=== PATIENT | female | born 1995 | race Caucasian/White ===

== ENCOUNTER → 2019-09-09 | Outpatient (CLI) | payer BC | LOC: M LABSMTC 12:38 | PROVIDERS: ATTEND Family Medicine | DX: Z11.59 Encounter for screening for other viral diseases (principal); Z20.828 Contact with and (suspected) exposure to other viral communicable diseases ==

== ENCOUNTER 2020-05-15 18:31 | Emergency (ER) | payer BC ==
[~2020-05-15] VITALS: Ht 175.3 cm; Wt 80.6 kg
[2020-05-15] MEDS ORDERED: METOCLOPRAMIDE 10 MG TAB PO ONE (19:15)
[2020-05-15 19:39] LABS: BASO % 0.4 % (0.0-1.0); EOS # 0.1 10^3/uL (0.0-0.5); EOS % 1.1 % (0.0-3.0); HEMATOCRIT 43.9 % (36.0-47.0); HEMOGLOBIN 14.6 g/dl (12.0-15.5); LYMPH # 2.8 10^3/uL (1.5-5.0); LYMPH % 36.9 % (24.0-44.0); MEAN CORPUSCULAR HGB CONC 33.3 g/dl (32.0-36.5); MEAN CORPUSCULAR VOLUME 90.1 fl (80.0-96.0); MONO # 0.4 10^3/uL (0.0-0.8); MONO % 5.2 % (0.0-5.0); NEUTROPHILS # 4.2 10^3/uL (1.5-8.5); NEUTROPHILS % 56.1 % (36.0-66.0); PLATELET COUNT, AUTOMATED 260 10^3/uL (150-450); RED BLOOD COUNT 4.87 10^6/uL (4.00-5.40); WHITE BLOOD COUNT 7.5 10^3/uL (4.0-10.0)
[2020-05-15 20:19] LABS: HCG, SERUM QUALITATIVE NEGATIVE (NEGATIVE)
[2020-05-15 20:20] LABS: ACETAMINOPHEN LEVEL < 2.0 UG/ML (10.0-30.0); ALBUMIN 3.4 GM/DL (3.2-5.2); ALT/SGPT 22 U/L (12-78); BILIRUBIN,DIRECT 0.1 MG/DL (0.0-0.2); BILIRUBIN,TOTAL 0.6 MG/DL (0.2-1.0); BLOOD UREA NITROGEN 14 MG/DL (7-18); CALCIUM LEVEL 8.9 MG/DL (8.5-10.1); CARBON DIOXIDE LEVEL 25 MEQ/L (21-32); CHLORIDE LEVEL 109 MEQ/L (98-107); CREATININE FOR GFR 0.83 MG/DL (0.55-1.30); ETHYL ALCOHOL (ETHANOL) < 0.003 % (0.000-0.010); FREE THYROXINE INDEX 3.6 % (1.3-4.8); GLOMERULAR FILTRATION RATE > 60.0 (>60); GLUCOSE, FASTING 81 MG/DL (70-100); MAGNESIUM LEVEL 1.8 MG/DL (1.8-2.4); POTASSIUM SERUM 4.1 MEQ/L (3.5-5.1); SALICYLATE LEVEL 2.5 MG/DL (5.0-30.0); SODIUM LEVEL 140 MEQ/L (136-145); T UPTAKE 33 % (30-39); TOTAL PROTEIN 6.7 GM/DL (6.4-8.2)
--- NOTE | 2020-05-15 20:46 | REPVR ---
PROCEDURE INFORMATION: Exam: CT Head Without Contrast Exam date and time: 05/15/2020 8:23 PM Age: 25 years old Clinical indication: Pain; Patient HX: Headaches for past 12 months; Additional info: Altered mental status TECHNIQUE: Imaging protocol: Computed tomography of the head without contrast. Axial and coronal reformatted images were created and reviewed. Radiation optimization: All CT scans at this facility use at least one of these dose optimization techniques: automated exposure control; mA and/or kV adjustment per patient size (includes targeted exams where dose is matched to clinical indication); or iterative reconstruction. COMPARISON: No relevant prior studies available. FINDINGS: Brain: No CT evidence of acute intracranial hemorrhage or acute territorial infarction. No significant mass effect or midline shift. Basal cisterns patent. Cerebral ventricles: Normal in size and configuration. Bones/joints: No acute osseous abnormality. Paranasal sinuses: Unremarkable. No fluid levels. Mastoid air cells: Grossly unremarkable. Soft tissues: Grossly unremarkable. IMPRESSION: No CT evidence of acute intracranial pathology. Electronically signed by: Beau Harrell On 05/15/2020 20:46:04 PM
[2020-05-15 21:07] LABS: AMPHETAMINES LEVEL URINE NEGATIVE (NEGATIVE); BARBITURATES URINE NEGATIVE (NEGATIVE); BENZODIAZEPINES URINE NEGATIVE (NEGATIVE); CANNABINOIDS URINE NEGATIVE (NEGATIVE); COCAINE METABOLITE URINE NEGATIVE (NEGATIVE); METHADONE URINE NEGATIVE (NEGATIVE); OPIATES URINE NEGATIVE (NEGATIVE); PHENCYCLIDINE URINE NEGATIVE (NEGATIVE)
[2020-05-15] MEDS ORDERED: REGL10TA6 PO (21:15)
[2020-05-15 21:22] VITALS: BP 122/70
== END 2020-05-15 21:24 | disposition home or self-care (01) ==
LOC: M ED 18:31
DX: R51.9 Headache, unspecified (principal); R11.0 Nausea
CPT/HCPCS: 36415; 70450; 80048; 80076; 80307; 81001; 83735; 84436; 84443; 84479; 84703; 85025; 99283; G0480

== ENCOUNTER 2020-11-21 21:26 | Inpatient (IN) | payer BC ==
[~2020-11-21] VITALS: Ht 175.3 cm; Wt 77.3 kg
[~2020-11-21 21:26] MED LIST: REGL10TA6 PO
[2020-11-21] MEDS ORDERED: FLUO20CA20 PO (21:35)
[2020-11-21] MEDS ORDERED: L-NO1TBD6 PO (21:35)
[2020-11-21] MEDS ORDERED: FLUO40CA PO (21:35)
[2020-11-21] MEDS ORDERED: [UNRECOGNIZED DRUG - OTHER] PO (21:40)
[2020-11-21] MEDS ORDERED: AZEL0.055 NARES (21:40)
[2020-11-21] MEDS ORDERED: BRIN10TA4 PO (21:40)
[2020-11-21] MEDS ORDERED: BUSP15TA47 PO (21:40)
[2020-11-21] MEDS ORDERED: CETI10CH PO (21:40)
[2020-11-21] MEDS ORDERED: LORA-622 PO (21:40)
[2020-11-21] MEDS ORDERED: FLON1SPR NARES (21:40)
[2020-11-21 22:05] LABS: BASO % 0.4 % (0.0-1.0); EOS % 0.3 % (0.0-3.0); HEMATOCRIT 41.8 % (36.0-47.0); HEMOGLOBIN 14.5 g/dl (12.0-15.5); LYMPH # 2.8 10^3/uL (1.5-5.0); LYMPH % 29.2 % (24.0-44.0); MEAN CORPUSCULAR HGB CONC 34.7 g/dl (32.0-36.5); MEAN CORPUSCULAR VOLUME 86.5 fl (80.0-96.0); MONO # 0.5 10^3/uL (0.0-0.8); MONO % 5.2 % (2.0-8.0); NEUTROPHILS # 6.2 10^3/uL (1.5-8.5); NEUTROPHILS % 64.7 % (36.0-66.0); PLATELET COUNT, AUTOMATED 263 10^3/uL (150-450); RED BLOOD COUNT 4.83 10^6/uL (4.00-5.40); WHITE BLOOD COUNT 9.6 10^3/uL (4.0-10.0)
[2020-11-21] MEDS ORDERED: NS 1,000 ML IV ONE (22:30)
[2020-11-21 22:38] LABS: ACETAMINOPHEN LEVEL < 2.0 UG/ML (10.0-30.0); ALBUMIN 3.4 GM/DL (3.2-5.2); ALT/SGPT 21 U/L (12-78); BILIRUBIN,DIRECT 0.1 MG/DL (0.0-0.2); BILIRUBIN,TOTAL 0.5 MG/DL (0.2-1.0); BLOOD UREA NITROGEN 11 MG/DL (7-18); CALCIUM LEVEL 8.8 MG/DL (8.5-10.1); CARBON DIOXIDE LEVEL 22 MEQ/L (21-32); CHLORIDE LEVEL 108 MEQ/L (98-107); CPK CREATINE PHOSPHOKINASE 112 U/L (26-192); CREATININE FOR GFR 0.75 MG/DL (0.55-1.30); ETHYL ALCOHOL (ETHANOL) < 0.003 % (0.000-0.010); GLOMERULAR FILTRATION RATE > 60.0 (>60); GLUCOSE, FASTING 86 MG/DL (70-100); POTASSIUM SERUM 3.7 MEQ/L (3.5-5.1); SALICYLATE LEVEL 4.8 MG/DL (5.0-30.0); SODIUM LEVEL 138 MEQ/L (136-145); TOTAL PROTEIN 6.7 GM/DL (6.4-8.2)
[2020-11-21 22:48] LABS: HCG, SERUM QUALITATIVE NEGATIVE (NEGATIVE)
[2020-11-21 23:29] LABS: AMPHETAMINES LEVEL URINE NEGATIVE (NEGATIVE); BARBITURATES URINE NEGATIVE (NEGATIVE); BENZODIAZEPINES URINE NEGATIVE (NEGATIVE); CANNABINOIDS URINE NEGATIVE (NEGATIVE); COCAINE METABOLITE URINE NEGATIVE (NEGATIVE); METHADONE URINE NEGATIVE (NEGATIVE); OPIATES URINE NEGATIVE (NEGATIVE); PHENCYCLIDINE URINE NEGATIVE (NEGATIVE)
[2020-11-22] MEDS: busPIRone 5 MG TAB PO SCH ×2 (08:48→21:20)
[2020-11-22] MEDS: FLUoxetine 20 MG CAP PO SCH (08:48)
[2020-11-22] MEDS ORDERED: CETI-14 PO (12:19)
[2020-11-22] MEDS ORDERED: ZZZQ25CA PO (12:19)
[2020-11-22] MEDS ORDERED: ALPR0.25 PO (12:19)
[2020-11-22 12:43] LABS: RSV AMPLIFICATION NEGATIVE (NEGATIVE)
[2020-11-22] MEDS ORDERED: MOM 30ML SUSPENSION UDC PO PRN (14:20)
[2020-11-22] MEDS ORDERED: traZODone 50 MG TAB PO PRN (14:20)
[2020-11-22] MEDS ORDERED: MAALOX 30 ML SUSP *UDC PO PRN (14:20)
[2020-11-22] MEDS ORDERED: ALPRAZolam 0.25 MG TAB PO PRN (14:20)
--- NOTE | 2020-11-22 19:44 | ECGEPIP ---
[facility] - ED Test Date: 2020-11-21 Pat Name: GUALBERTO KNUTSON Department: Room: - Gender: Female Charge Operator: NAYANA : 1995 Requested By: ALFREDO Steiner Order Number: [id number] Reading MD: Jose M Hines Measurements Intervals [place] Rate: 72 P: 44 DE: 154 QRS: 4 QRSD: 86 T: 28 QT: 406 QTc: 444 Interpretive Statements Normal sinus rhythm POOR R WAVE PROGRESSION NONSPECIFIC T WAVE ABNORMALITY(S) NO PRIORS FOR COMPARISON Electronically Signed on 11-22-2020 19:44:27 EDT by Jose M Hines
[2020-11-22] MEDS ORDERED: FLUoxetine 20 MG CAP PO SCH ×2 (21:00)
[2020-11-22] MEDS ORDERED: TRINTELLIX 10 MG PO SCH (21:00)
[2020-11-22] MEDS ORDERED: FLUTICASONE PROP 0.05% NASAL SPRAY 16 GM (FLONASE) NARES SCH (21:00)
[2020-11-22] MEDS ORDERED: AZELASTINE 137MCG NASAL SPY 30 ML (ASTELIN) SCH (21:00)
[2020-11-22] MEDS ORDERED: CETIRIZINE (ZyrTEC) 10 MG TAB PO SCH (21:00)
[2020-11-22] MEDS ORDERED: busPIRone 10 MG TAB PO SCH (21:00)
[2020-11-22 21:18] VITALS: BP 109/62
[2020-11-23 06:37] VITALS: BP 123/77
[2020-11-23] MEDS ORDERED: INFLUENZA QUADRIVALENT PF VACCINE 0.5ML SYRINGE IM ONE (09:00)
[2020-11-23] MEDS ORDERED: NORGEST PO SCH (09:00)
[2020-11-23] MEDS ORDERED: E ESTRADIOL E ESTRAD PO SCH (09:00)
[2020-11-23] MEDS: busPIRone 5 MG TAB PO SCH (09:08)
[2020-11-23] MEDS: FLUoxetine 20 MG CAP PO SCH (09:08)
--- NOTE | 2020-11-23 11:48 | MHHPEPDOC ---
General Date Of Admission: Nov 22, 2020 Legal Status: 9.39 Chief Complaint I was upset when my dentist told me that I [id number] pounds ". History of Present Illness HISTORY OF THE PRESENT ILLNESS: Patient is a 25 -year-old , female, who [has been suffering from eating disorder for the past 10 years. She has been in fairly good control with ongoing treatment, but on Thursday she went to a dentist and he weighed her despite her request not and found out she weighed] 170 pounds. She stated that she got upset when she came home and took about 10 or 15. Prescription Prozac . She states that she got upset and scared and told her boyfriend about this and was brought to emergency room and admitted on 9:30. Status. She denies any suicidal intent. Denies any history of a suicidal attempt and has been doing fairly well with her eating disorder and has been seeing a counselor.. She is in a stable relationship with a boyfriend has been working as a teacher and is planning to move to [place], [place] in the next 2 months. She doesn't want any change in her treatment and doesn't feel she needs any inpatient stay. Psychiatric Review of Systems Depression (2 or more weeks): denies Angela (4 or more days of): denies Psychosis: denies PTSD: denies Anxiety: situational anxiety, stressor related anxiety Past Psychiatric History Previous Psychiatric Diagnosis: [, Anorexia for 10 years]. Previous Psychiatric Admissions: [Was in partial hospital program 7 years ago]. Suicide Attempts: [No history of a suicidal attempt]. Psychiatric Follow-up: Is in active treatment. Psychiatric medications: [On Prozac]. Past Medical History Medical Problems No major medical history Head Injury: No Seizures: No Hospitalizations: No Surgeries: No Family Medical/Psychiatric HX Medical Problems Noncontributory Psychiatric Disorders: No Addiction: No Suicide Attemps/Completions: No Addiction History denies Social History Childhood: [: Remarkable child."]. Abuse/Trauma:[No history of abuse]. Current Living Situation: [Lives alone but has a boyfriend near by]. Education: [College degree]. 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 Social Support: [Close to mother and the boyfriend]. Legal: None . Marital: [in stable relationship]. Mental Status Examination General Appearance: well groomed, appears stated age Build: average Demeanor: average Eye Contact: average Activity: average Behavior: cooperative Speech: clear, spontaneous, normal volume Mood: anxious Mood Was upset with her weight, but is feeling better now Thought Process: logical/linear Thought Content (Delusions): none reported Thought Content (Other): none reported Thought Content (Aggressive): none reported Perception (Hallucinations): none reported Perception (Other): none reported Cognition (Impairment of): none reported Cognition(Intelligence Est.): average Oriented: Awake, Alert, Oriented times three Insight: good Judgment: Fair Psychosis: Denies Diagnoses Adjustment disorder with mixed emotion long history of eating disorder A-FIB/CHADSVASC A-FIB History Current/History of A-Fib/PAF?: No Current PO Anticoag Therapy: No Age/Risk Factor Scoring CHADSVASC: CHADSVASC Response (Comments) Value Gender Risk Factor Female 1 Hx of CHF No 0 Hx of HTN No 0 Hx of Stroke/TIA/or VTE No 0 Hx of Diabetes No 0 Total 1 Treatment Treatment ordered: NONE Assessment Doesn't appear to be seriously depressed and does not appear to be suicidal. She has a good support system and currently in active treatment and is safe to discharge with the current outpatient treatment Initial Treatment Plan 1. Patient was admitted on a [9.39] status. 2. Complete history was obtained. 3. With patients permission, family will be contacted and database will be expanded. 4. Patients medication regimen will be reviewed and changed accordingly. 5. Patient will be provided with protected environment. 6. Patient will be treated with individual, group, and milieu therapies. 7. Patient will receive supportive psych-education. 8. Discharge planning will commence immediately. 9. Outpatient follow-up treatment will be strongly recommended. 10. The initial treatment plan will focus initially on: * Depression. * Risk for suicide. ESTIMATED LENGTH OF STAY: - DAYS. Discharge today TIME SPENT COUNSELING AND COORDINATING INITIAL CARE: [45] minutes. Tobacco Cessation Screen If Patient is a Smoker Nonsmoker N/A-No Antipsychotics Vital Signs Vital Signs Date Time Temp Pulse Resp B/P (MAP) Pulse Ox O2 Delivery O2 Flow Rate FiO2 11/23/20 11:14 Room Air 11/23/20 06:37 97.8 67 12 123/77 (92) 100 Medications Scheduled Azelastine HCl (Azelastine HCl) 0.15% Barnhart.pump, 2 SPRAY NARES QHS, (Reported) Buspirone HCl (Buspirone HCl) 15 Mg Tablet, 30 MG PO QHS, (Reported) Cetirizine HCl (Cetirizine HCl) 10 Mg Tablet, 10 MG PO QHS, (Reported) Fluoxetine Hcl (Fluoxetine HCl) 20 Mg Capsule, 20 MG PO QHS, (Reported) 60MG TOTAL DAILY Fluoxetine Hcl (Fluoxetine HCl) 40 Mg Capsule, 40 MG PO QHS, (Reported) 60MG TOTAL DAILY Fluticasone Propionate (Flonase Allergy Relief) 9.9 Ml Barnhart.susp, 2 SPRAY NARES QHS, (Reported) Vortioxetine Hydrobromide (Trintellix) 10 Mg Tablet, 10 MG PO QHS, (Reported) [hydroxycut elite] , 2 TABS PO ASDIRECTED, (Reported) l-Norgest/E.estradiol-E.estrad (Jaimiess 0.15-0.03-0.01 mg Tab) 150-30(84) Tbdspk.3mo, 1 TAB PO QHS, (Reported) Scheduled PRN Alprazolam (Alprazolam) 0.25 Mg Tablet, 0.25 MG PO BID PRN for ANXIETY, (Reported) Diphenhydramine HCl (Zzzquil) 25 Mg Capsule, 50 MG PO QHS PRN for SLEEP, (Reported) Allergies Coded Allergies: No Known Allergies (Verified Allergy, Unknown, 05/15/20) FREDERICK BARRERA M.D. Nov 23, 2020 11:48
--- NOTE | 2020-11-26 11:38 | MHDSPDOC ---
[facility] Discharge Summary Discharge Summary DATE OF ADMISSION: Nov 22, 2020 at 14:17 DATE OF DISCHARGE: Nov 23, 2020 at 12:31 DISCHARGE DIAGNOSES: 1. . Adjustment disorder with mixed emotion 2. . REASON FOR ADMISSION: 25-year-old female with a history of eating disorder, admitted after taking about 10 tablets of prescription Prozac because she was upset with her weight. CONSULTANTS INVOLVED: None TREATMENT AND PROGRESS ON THE UNIT : Patient was seen for supportive therapy and a lethality evaluation. She is denying any serious ongoing depression and her eating disorder has been in fair control and states that she was upset after finding her weight at her dentist office. She has a good deal of support system, including close outpatient treatment and her fianc and strongly denies any suicidal thoughts and is willing to continue her current outpatient treatment.. HOSPITAL COURSE: Patient remained in good control and continued to deny any suicidal thoughts and is anxious to go home with her current outpatient follow- up DISCHARGE ASSESSMENT: , Stable, not suicidal, and at her baseline mental status MENTAL STATUS EXAMINATION ON DISCHARGE: Patient is a 25 -year old female, who is , pleasant and cooperative. Speech is rational, coherent and productive. Language skills are good. Thought processes including: , Well organized. Thought content: No serious depression and no suicidal plan. Abstract reasoning, and computation: Good. Description of associations: , Well organized. Description of abnormal or psychotic thoughts: None. Judgment: Fair. Insight: Good. Orientation to well oriented . Recent and remote memory: Good. Attention span and concentration: Good. Language: . Fund of knowledge: . Mood: , Mildly anxious but not seriously depressed. Affect: Animated and appropriate. MEDICATIONS ON DISCHARGE: - for ]. Continue her current home medications - for . - for . PLAN/FOLLOWUP ARRANGEMENTS: [Has an outpatient appointment]. The amount of time spent in the coordination of care for this patient was approximately [30] minutes. ETOH/Disorder Med Rx ETOH/DRUG DISORDER RX: N/A Vital Signs/I&Os Vital Signs Date Time Temp Pulse Resp B/P (MAP) Pulse Ox O2 Delivery O2 Flow Rate FiO2 11/23/20 11:14 Room Air 11/23/20 06:37 97.8 67 12 123/77 (92) 100 Medications Scheduled Azelastine HCl (Azelastine HCl) 0.15% Remington.pump, 2 SPRAY NARES QHS, (Reported) Buspirone HCl (Buspirone HCl) 15 Mg Tablet, 30 MG PO QHS, (Reported) Cetirizine HCl (Cetirizine HCl) 10 Mg Tablet, 10 MG PO QHS, (Reported) Fluoxetine Hcl (Fluoxetine HCl) 20 Mg Capsule, 20 MG PO QHS, (Reported) 60MG TOTAL DAILY Fluoxetine Hcl (Fluoxetine HCl) 40 Mg Capsule, 40 MG PO QHS, (Reported) 60MG TOTAL DAILY Fluticasone Propionate (Flonase Allergy Relief) 9.9 Ml Remington.susp, 2 SPRAY NARES QHS, (Reported) Vortioxetine Hydrobromide (Trintellix) 10 Mg Tablet, 10 MG PO QHS, (Reported) [hydroxycut elite] , 2 TABS PO ASDIRECTED, (Reported) l-Norgest/E.estradiol-E.estrad (Jaimiess 0.15-0.03-0.01 mg Tab) 150-30(84) Tbdspk.3mo, 1 TAB PO QHS, (Reported) Scheduled PRN Alprazolam (Alprazolam) 0.25 Mg Tablet, 0.25 MG PO BID PRN for ANXIETY, (Reported) Diphenhydramine HCl (Zzzquil) 25 Mg Capsule, 50 MG PO QHS PRN for SLEEP, (Reported) Allergies Coded Allergies: No Known Allergies (Verified Allergy, Unknown, 05/15/20) FREDERICK BARRERA M.D. Nov 26, 2020 11:38
== END 2020-11-23 12:31 | disposition home or self-care (01) | DRG 755 ==
LOC: M ED 21:26 → M ED INP 11-22 14:17 → M PSY 11-22 21:30
PROVIDERS: ADMIT Psychiatry & Neurology Psychiatry; ATTEND Psychiatry & Neurology Psychiatry
DX: F43.25 Adjustment disorder with mixed disturbance of emotions and conduct (principal); F50.9 Eating disorder, unspecified; Z79.899 Other long term (current) drug therapy; Z20.822 Contact with and (suspected) exposure to COVID-19